=== PATIENT | female | born 1940 | race African-American/Black ===

== ENCOUNTER 2021-07-24 08:33 | Inpatient (IN) | payer MEDICARE, MEDICAID ==
[~2021-07-24] VITALS: Ht 157.5 cm; Wt 65.3 kg
[2021-07-24 09:17] LABS: BASOPHILS % 0.5 % (0.0-2.0); EOSINOPHILS % 5.6 % (0.0-5.0); HEMATOCRIT. 35.9 % (36.0-48.0); HEMOGLOBIN. 11.5 g/dL (12.0-16.0); LYMPHOCYTES % 20.9 % (20.0-50.0); MEAN CORPUSCULAR HEMOGLOBIN 24.2 pg (28.0-32.0); MEAN CORPUSCULAR VOLUME 75.7 fL (81.0-99.0); MEAN PLATELET VOLUME 8.9 fl (7.4-10.4); MONOCYTES % 4.9 % (2.0-8.0); NEUTROPHILS % 68.1 % (40.0-76.0); PLATELET 178 x1000/uL (130-400); RED BLOOD CELL COUNT 4.74 mill/uL (4.2-5.4)
[2021-07-24 09:20] LABS: CHLORIDE 103 mEq/L (98-107)
[2021-07-24 09:24] LABS: ETHANOL BLOOD < 10 mg/dL
[2021-07-24 09:27] LABS: LDL CHOLESTEROL 57 mg/dL (5-100)
[2021-07-24] MEDS ORDERED: IOHEXOL-350 100 ML BOTTLE ONE (09:48)
[2021-07-24] MEDS ORDERED: ASPIRIN 81MG TABLET PO ONE (10:15)
[2021-07-24] MEDS ORDERED: NITROGLYCERIN OINT 1GM/INCH UDPKT TD ONE (10:15)
[2021-07-24] MEDS ORDERED: HYDRALAZINE 20MG/ML VIAL IV ONE (10:15)
[2021-07-24] MEDS ORDERED: FUROSEMIDE 40MG/4ML VIAL IV ONE (10:15)
[2021-07-24 10:49] LABS: CLARITY URINE CLOUDY (CLEAR); COLOR URINE RED (YELLOW); KETONES URINE NEGATIVE (NEGATIVE); LEUKOCYTE ESTERASE URINE 3+ (NEGATIVE); NITRITE URINE NEGATIVE (NEGATIVE); OCCULT BLOOD URINE 3+ (NEGATIVE); PROTEIN URINE 1+ (NEGATIVE); SPECIFIC GRAVITY URINE 1.011 (1.005-1.030)
[2021-07-24 10:50] LABS: INR 1.3; PARTIAL THROMBOPLASTIN TIME 32.2 sec (23.4-31.0); PROTHROMBIN TIME 13.5 sec (9.6-11.0)
[2021-07-24] MEDS ORDERED: LEVOFLOXACIN 500MG PREMIX 100 ML IV ONE (11:00)
[2021-07-24 11:10] LABS: *AMPHETAMINES SCREEN URINE NEGATIVE (NEGATIVE); *BARBITURATES SCREEN URINE NEGATIVE (NEGATIVE); *BENZODIAZEPINES SCREEN URINE NEGATIVE (NEGATIVE); *COCAINE SCREEN URINE NEGATIVE (NEGATIVE)
[2021-07-24 11:11] LABS: CANNABINOID URINE SCREEN NEGATIVE (NEGATIVE); METHADONE URINE SCREEN NEGATIVE (NEGATIVE); OPIATES URINE SCREEN NEGATIVE (NEGATIVE); PHENCYCLIDINE URINE SCREEN NEGATIVE (NEGATIVE)
[2021-07-24] MEDS ORDERED: ONDANSETRON HCL 4MG/2ML INJ IV PRN (14:45)
[2021-07-24] MEDS ORDERED: ACETAMINOPHEN 325MG TABLET PO PRN (14:45)
[2021-07-24] MEDS ORDERED: DOCUSATE SODIUM 100MG CAPSULE PO PRN (14:45)
[2021-07-24] MEDS: CLOPIDOGREL 75MG TABLET PO SCH (14:45)
[2021-07-24] MEDS ORDERED: IPRATROPIUM/ALBUTEROL 0.5-3(2.5)MG/3ML NEB HHN PRN (14:45)
[2021-07-24] MEDS ORDERED: ESMOLOL 2500MG PREMIX 250 ML IV PRN ×2 (15:00→15:45)
[2021-07-24] MEDS: ENOXAPARIN 60MG/0.6ML SYR SUBCUT SCH (16:26)
[2021-07-24 16:35] LABS: TOTAL IRON BINDING CAPACITY 431 ug/dL (250-450)
[2021-07-24 16:54] LABS: FOLIC ACID (FOLATE) SERUM >20 ng/mL ng/mL (>5.38)
[2021-07-24 17:04] LABS: FERRITIN 41 ng/mL (10-291)
[2021-07-24 17:05] LABS: VITAMIN B12 SERUM 660 pg/mL (211-911)
[2021-07-25] VITALS (51 sets, daily range): BP systolic 79–195; BP diastolic 28–122
[2021-07-25 09:03] LABS: BASOPHILS % 0.4 % (0.0-2.0); EOSINOPHILS % 0.6 % (0.0-5.0); HEMATOCRIT. 37.1 % (36.0-48.0); HEMOGLOBIN. 11.9 g/dL (12.0-16.0); LYMPHOCYTES % 12.7 % (20.0-50.0); MEAN CORPUSCULAR HEMOGLOBIN 24.2 pg (28.0-32.0); MEAN CORPUSCULAR VOLUME 75.7 fL (81.0-99.0); MEAN PLATELET VOLUME 8.8 fl (7.4-10.4); MONOCYTES % 7.8 % (2.0-8.0); NEUTROPHILS % 78.5 % (40.0-76.0); PLATELET 156 x1000/uL (130-400); RED BLOOD CELL COUNT 4.91 mill/uL (4.2-5.4)
[2021-07-25 09:08] LABS: CHLORIDE 98 mEq/L (98-107)
[2021-07-25] MEDS ORDERED: LEVOFLOXACIN 500MG PREMIX 100 ML IV SCH (12:00)
[2021-07-25] MEDS: ESMOLOL 2500MG PREMIX 250 ML IV PRN ×3 (12:52→21:49)
[2021-07-25] MEDS ORDERED: POTASSIUM CHLORIDE 20MEQ TABLET SR PO NR (13:45)
[2021-07-25] MEDS: LEVOFLOXACIN 250MG PREMIX 50 ML IV SCH (14:44)
[2021-07-25] MEDS: ASPIRIN 81MG TABLET PO SCH (14:44)
[2021-07-25] MEDS: DEXT 5%/0.9% NACL 1,000 ML IV SCH (14:44)
[2021-07-25] MEDS: CLOPIDOGREL 75MG TABLET PO SCH (14:45)
[2021-07-25] MEDS: IRON SUCROSE COMPLEX 100 MG/5 ML ML IV SCH (18:33)
[2021-07-25] MEDS: ENOXAPARIN 60MG/0.6ML SYR SUBCUT SCH (18:33)
[2021-07-26] VITALS (90 sets, daily range): BP systolic 106–169; BP diastolic 54–135
[2021-07-26] MEDS: DEXT 5%/0.9% NACL 1,000 ML IV SCH ×2 (01:50→09:13)
[2021-07-26] MEDS: ESMOLOL 2500MG PREMIX 250 ML IV PRN ×6 (01:50→23:59)
[2021-07-26 05:27] LABS: HEMATOCRIT. 32.8 % (36.0-48.0); HEMOGLOBIN. 10.6 g/dL (12.0-16.0); MEAN CORPUSCULAR HEMOGLOBIN 24.4 pg (28.0-32.0); MEAN CORPUSCULAR VOLUME 75.2 fL (81.0-99.0); MEAN PLATELET VOLUME 8.8 fl (7.4-10.4); PLATELET 139 x1000/uL (130-400); RED BLOOD CELL COUNT 4.36 mill/uL (4.2-5.4); RED CELL DISTRIBUTION WIDTH 20.9 % (11.6-14.6)
[2021-07-26 05:34] LABS: CHLORIDE 99 mEq/L (98-107)
[2021-07-26] MEDS ORDERED: POTASSIUM CHLORIDE 20MEQ/PACKET PO NR (07:30)
[2021-07-26] MEDS: CLOPIDOGREL 75MG TABLET PO SCH (08:59)
[2021-07-26] MEDS: MAGNESIUM OXIDE 400MG TABLET PO SCH (08:59)
[2021-07-26] MEDS: ASPIRIN 81MG TABLET PO SCH (08:59)
[2021-07-26 10:23] LABS: PLATELET ESTIMATE NORMAL
[2021-07-26] MEDS: LEVOFLOXACIN 250MG PREMIX 50 ML IV SCH (12:18)
[2021-07-26 13:05] LABS: CREATINE KINASE 267 IU/L (26-192)
[2021-07-26] MEDS: METOPROLOL TARTRATE 25MG TABLET PO SCH ×2 (13:50→22:03)
[2021-07-26 13:57] LABS: CLARITY URINE CLOUDY (CLEAR); COLOR URINE DARK YELLOW (YELLOW); KETONES URINE TRACE (NEGATIVE); LEUKOCYTE ESTERASE URINE 3+ (NEGATIVE); NITRITE URINE NEGATIVE (NEGATIVE); OCCULT BLOOD URINE 3+ (NEGATIVE); PH URINE 6.5 (4.5-8.0); PROTEIN URINE 2+ (NEGATIVE); SPECIFIC GRAVITY URINE 1.023 (1.005-1.030)
[2021-07-26] MEDS: ENOXAPARIN 60MG/0.6ML SYR SUBCUT SCH (16:45)
[2021-07-26] MEDS: IRON SUCROSE COMPLEX 100 MG/5 ML ML IV SCH (16:45)
[2021-07-26] MEDS ORDERED: DEXTROSE 50% WATER 50ML SYRINGE IV PRN (21:30)
[2021-07-27] VITALS (87 sets, daily range): BP systolic 122–186; BP diastolic 52–101
[2021-07-27] MEDS: DEXT 5%/0.9% NACL 1,000 ML IV SCH ×2 (02:44→13:00)
[2021-07-27 06:11] LABS: HEMATOCRIT. 32.3 % (36.0-48.0); HEMOGLOBIN. 10.5 g/dL (12.0-16.0); MEAN CORPUSCULAR HEMOGLOBIN 24.2 pg (28.0-32.0); MEAN CORPUSCULAR VOLUME 74.5 fL (81.0-99.0); MEAN PLATELET VOLUME 9.1 fl (7.4-10.4); PLATELET 141 x1000/uL (130-400); RED BLOOD CELL COUNT 4.34 mill/uL (4.2-5.4); RED CELL DISTRIBUTION WIDTH 20.8 % (11.6-14.6)
[2021-07-27] MEDS: METOPROLOL TARTRATE 25MG TABLET PO SCH ×2 (06:17→17:10)
[2021-07-27 06:24] LABS: CHLORIDE 103 mEq/L (98-107)
[2021-07-27] MEDS: ESMOLOL 2500MG PREMIX 250 ML IV PRN (06:42)
[2021-07-27] MEDS: BLOOD SUGAR DIAGNOSTIC STRIP TEST SCH ×4 (07:54→18:04)
[2021-07-27] MEDS: INSULIN LISPRO 100 UNITS/ML SUBCUT SCH ×4 (07:54→21:00)
[2021-07-27] MEDS: ASPIRIN 81MG TABLET PO SCH (09:38)
[2021-07-27] MEDS: MAGNESIUM OXIDE 400MG TABLET PO SCH (09:38)
[2021-07-27] MEDS: CLOPIDOGREL 75MG TABLET PO SCH (09:38)
[2021-07-27] MEDS: LEVOFLOXACIN 250MG PREMIX 50 ML IV SCH (12:58)
[2021-07-27] MEDS: ESMOLOL 2500MG PREMIX 250 ML IV SCH ×3 (13:48→23:09)
[2021-07-27] MEDS: ENOXAPARIN 60MG/0.6ML SYR SUBCUT SCH (16:03)
[2021-07-27] MEDS: IRON SUCROSE COMPLEX 100 MG/5 ML ML IV SCH (16:03)
[2021-07-27] MEDS: AMLODIPINE 5MG TABLET PO SCH (16:04)
[2021-07-27 16:13] LABS: PLATELET ESTIMATE NORMAL
[2021-07-27] MEDS: NITROGLYCERIN OINT 1GM/INCH UDPKT TD SCH (17:09)
[2021-07-27] MEDS ORDERED: ENALAPRIL 1.25MG/ML VIAL 1ML IV NR (17:33)
[2021-07-27] MEDS ORDERED: ENALAPRIL 1.25MG/ML VIAL 1ML IV PRN (17:38)
[2021-07-28] VITALS (92 sets, daily range): BP systolic 127–181; BP diastolic 58–97
[2021-07-28] MEDS: NITROGLYCERIN OINT 1GM/INCH UDPKT TD SCH ×5 (00:07→23:22)
[2021-07-28] MEDS: DEXT 5%/0.9% NACL 1,000 ML IV SCH ×3 (00:07→21:17)
[2021-07-28] MEDS: METOPROLOL TARTRATE 25MG TABLET PO SCH ×3 (05:10→20:15)
[2021-07-28 05:53] LABS: CHLORIDE 104 mEq/L (98-107)
[2021-07-28 05:59] LABS: BASOPHILS % 0.1 % (0.0-2.0); EOSINOPHILS % 0.4 % (0.0-5.0); HEMATOCRIT. 31.2 % (36.0-48.0); HEMOGLOBIN. 10.3 g/dL (12.0-16.0); LYMPHOCYTES % 12.1 % (20.0-50.0); MEAN CORPUSCULAR HEMOGLOBIN 24.8 pg (28.0-32.0); MEAN CORPUSCULAR VOLUME 75.3 fL (81.0-99.0); MEAN PLATELET VOLUME 9.1 fl (7.4-10.4); NEUTROPHILS % 76.4 % (40.0-76.0); PLATELET 162 x1000/uL (130-400); RED BLOOD CELL COUNT 4.14 mill/uL (4.2-5.4)
[2021-07-28] MEDS: BLOOD SUGAR DIAGNOSTIC STRIP TEST SCH (07:50)
[2021-07-28] MEDS: INSULIN LISPRO 100 UNITS/ML SUBCUT SCH (08:20)
[2021-07-28] MEDS: MAGNESIUM OXIDE 400MG TABLET PO SCH (09:20)
[2021-07-28] MEDS: ASPIRIN 81MG TABLET PO SCH (09:20)
[2021-07-28] MEDS: AMLODIPINE 5MG TABLET PO SCH (09:20)
[2021-07-28] MEDS: ESMOLOL 2500MG PREMIX 250 ML IV SCH (11:25)
[2021-07-28] MEDS: LEVOFLOXACIN 250MG PREMIX 50 ML IV SCH (12:13)
[2021-07-28] MEDS ORDERED: LISINOPRIL 5MG TABLET PO NR (13:00)
[2021-07-28] MEDS: ENOXAPARIN 60MG/0.6ML SYR SUBCUT SCH (16:46)
[2021-07-29] VITALS (55 sets, daily range): BP systolic 110–204; BP diastolic 57–135
[2021-07-29] MEDS: DEXT 5%/0.9% NACL 1,000 ML IV SCH (02:50)
[2021-07-29] MEDS: NITROGLYCERIN OINT 1GM/INCH UDPKT TD SCH ×3 (05:34→21:50)
[2021-07-29 06:05] LABS: BASOPHILS % 0.3 % (0.0-2.0); EOSINOPHILS % 1.6 % (0.0-5.0); HEMATOCRIT. 34.1 % (36.0-48.0); LYMPHOCYTES % 15.4 % (20.0-50.0); MEAN CORPUSCULAR HEMOGLOBIN 24.5 pg (28.0-32.0); MEAN CORPUSCULAR VOLUME 76.1 fL (81.0-99.0); MEAN PLATELET VOLUME 9.1 fl (7.4-10.4); MONOCYTES % 10.8 % (2.0-8.0); NEUTROPHILS % 71.9 % (40.0-76.0); PLATELET 195 x1000/uL (130-400); RED BLOOD CELL COUNT 4.47 mill/uL (4.2-5.4); RED CELL DISTRIBUTION WIDTH 21.3 % (11.6-14.6)
[2021-07-29 06:07] LABS: CHLORIDE 105 mEq/L (98-107)
[2021-07-29 06:22] LABS: PHOSPHORUS 1.6 mg/dL (2.5-4.9)
[2021-07-29] MEDS ORDERED: HYDRALAZINE 20MG/ML VIAL IV ONE ×2 (06:45→07:00)
[2021-07-29] MEDS ORDERED: HYDRALAZINE 20MG/ML VIAL IV SCH ×2 (06:45→07:15)
[2021-07-29] MEDS: ACETAMINOPHEN 325MG TABLET PO PRN ×2 (06:54→19:59)
[2021-07-29] MEDS: ASPIRIN 81MG TABLET PO SCH (07:42)
[2021-07-29] MEDS: MAGNESIUM OXIDE 400MG TABLET PO SCH (07:42)
[2021-07-29] MEDS: AMLODIPINE 5MG TABLET PO SCH (07:43)
[2021-07-29] MEDS: METOPROLOL TARTRATE 25MG TABLET PO SCH ×2 (07:43→21:50)
[2021-07-29] MEDS ORDERED: LISINOPRIL 5MG TABLET PO SCH ×2 (09:00)
[2021-07-29] MEDS ORDERED: POTASSIUM PHOS,M-BASIC-D-BASIC 20 MMOL in DEXT 5% WATER 243.3333 ML IV NR (12:00)
[2021-07-29] MEDS: ENOXAPARIN 60MG/0.6ML SYR SUBCUT SCH (16:47)
[2021-07-30] VITALS (12 sets, daily range): BP systolic 116–159; BP diastolic 60–78
[2021-07-30] MEDS: NITROGLYCERIN OINT 1GM/INCH UDPKT TD SCH ×2 (06:37→21:11)
[2021-07-30] MEDS: DEXT 5%/0.9% NACL 1,000 ML IV SCH (06:42)
[2021-07-30 07:08] LABS: *CREATININE RANDOM URINE 124.9 mg/dL (Not Estab.); MICROALBUMIN RANDOM URINE 408.1 ug/mL (Not Estab.)
[2021-07-30 07:51] LABS: BASOPHILS % 0.2 % (0.0-2.0); EOSINOPHILS % 4.3 % (0.0-5.0); HEMATOCRIT. 30.9 % (36.0-48.0); LYMPHOCYTES % 15.5 % (20.0-50.0); MEAN CORPUSCULAR HEMOGLOBIN 25.1 pg (28.0-32.0); MEAN CORPUSCULAR VOLUME 77.1 fL (81.0-99.0); MEAN PLATELET VOLUME 8.5 fl (7.4-10.4); MONOCYTES % 12.3 % (2.0-8.0); NEUTROPHILS % 67.7 % (40.0-76.0); PLATELET 196 x1000/uL (130-400); RED BLOOD CELL COUNT 4.01 mill/uL (4.2-5.4); RED CELL DISTRIBUTION WIDTH 21.6 % (11.6-14.6)
[2021-07-30 08:13] LABS: CHLORIDE 107 mEq/L (98-107)
[2021-07-30 08:28] LABS: PHOSPHORUS 2.1 mg/dL (2.5-4.9)
[2021-07-30] MEDS: METOPROLOL TARTRATE 25MG TABLET PO SCH ×2 (08:51→21:10)
[2021-07-30] MEDS: AMLODIPINE 5MG TABLET PO SCH (08:51)
[2021-07-30] MEDS: ASPIRIN 81MG TABLET PO SCH (08:51)
[2021-07-30] MEDS: MAGNESIUM OXIDE 400MG TABLET PO SCH (08:52)
[2021-07-30] MEDS: LISINOPRIL 20MG TABLET PO SCH (08:52)
[2021-07-30] MEDS: APIXABAN 2.5 MG TABLET PO SCH ×2 (12:31→21:10)
[2021-07-30] MEDS: ACETAMINOPHEN 325MG TABLET PO PRN (17:58)
[2021-07-31] VITALS (11 sets, daily range): BP systolic 94–188; BP diastolic 57–112
[2021-07-31 06:15] LABS: CHLORIDE 106 mEq/L (98-107)
[2021-07-31 06:39] LABS: BASOPHILS % 0.4 % (0.0-2.0); EOSINOPHILS % 7.3 % (0.0-5.0); HEMATOCRIT. 33.5 % (36.0-48.0); HEMOGLOBIN. 10.6 g/dL (12.0-16.0); LYMPHOCYTES % 14.9 % (20.0-50.0); MEAN CORPUSCULAR HEMOGLOBIN 24.8 pg (28.0-32.0); MEAN CORPUSCULAR VOLUME 78.1 fL (81.0-99.0); MEAN PLATELET VOLUME 8.5 fl (7.4-10.4); MONOCYTES % 11.9 % (2.0-8.0); NEUTROPHILS % 65.5 % (40.0-76.0); PLATELET 217 x1000/uL (130-400); RED BLOOD CELL COUNT 4.29 mill/uL (4.2-5.4); RED CELL DISTRIBUTION WIDTH 21.7 % (11.6-14.6)
[2021-07-31] MEDS: MAGNESIUM OXIDE 400MG TABLET PO SCH (08:44)
[2021-07-31] MEDS: LISINOPRIL 20MG TABLET PO SCH (08:44)
[2021-07-31] MEDS: METOPROLOL TARTRATE 25MG TABLET PO SCH ×2 (08:44→22:51)
[2021-07-31] MEDS: AMLODIPINE 5MG TABLET PO SCH (08:45)
[2021-07-31] MEDS: NITROGLYCERIN OINT 1GM/INCH UDPKT TD SCH ×2 (08:45→22:50)
[2021-07-31] MEDS: ASPIRIN 81MG TABLET PO SCH (08:45)
[2021-07-31] MEDS: APIXABAN 2.5 MG TABLET PO SCH ×2 (08:45→22:50)
[2021-07-31] MEDS: DEXT 5%/0.9% NACL 1,000 ML IV SCH (08:47)
[2021-07-31] MEDS ORDERED: BISACODYL 10MG SUPP PR PRN (11:15)
[2021-07-31] MEDS: POLYETHYLENE GLYCOL 3350 (17GM) 1 DOSE PACK PO SCH (13:06)
[2021-08-01] VITALS (12 sets, daily range): BP systolic 132–160; BP diastolic 67–99
[2021-08-01] MEDS: ACETAMINOPHEN 325MG TABLET PO PRN ×2 (04:15→12:04)
[2021-08-01] MEDS: AMLODIPINE 5MG TABLET PO SCH (08:46)
[2021-08-01] MEDS: LISINOPRIL 20MG TABLET PO SCH (08:46)
[2021-08-01] MEDS: POLYETHYLENE GLYCOL 3350 (17GM) 1 DOSE PACK PO SCH (08:46)
[2021-08-01] MEDS: NITROGLYCERIN OINT 1GM/INCH UDPKT TD SCH (08:46)
[2021-08-01] MEDS: MAGNESIUM OXIDE 400MG TABLET PO SCH (08:46)
[2021-08-01] MEDS: ASPIRIN 81MG TABLET PO SCH (08:46)
[2021-08-01] MEDS: METOPROLOL TARTRATE 25MG TABLET PO SCH (08:47)
[2021-08-01] MEDS: APIXABAN 2.5 MG TABLET PO SCH (08:47)
[2021-08-01] MEDS ORDERED: ASPI-1160 PO (14:25)
[2021-08-01] MEDS ORDERED: APIX2.5T PO (14:25)
[2021-08-01] MEDS ORDERED: METO25TA6 PO (14:25)
[2021-08-01] MEDS ORDERED: LISI20TA31 PO (14:25)
[2021-08-01] MEDS ORDERED: AMLO5TAB88 PO (14:25)
[2021-08-01] MEDS ORDERED: NITR1OIN TD (14:25)
== END 2021-08-01 20:20 | DRG 64 ==
LOC: ER 08:39 → MICUSO 10:23 → EDBEDREQSVC 15:06 → CVICU 07-25 11:16 → 5EST 07-29 12:34
PROVIDERS: ADMIT Internal Medicine; ATTEND Internal Medicine
PROC: 4A10X4Z Monitoring of Central Nervous Electrical Activity, External Approach (ICD-10-PCS; principal; 2021-07-27)
DX: I63.512 Cerebral infarction due to unspecified occlusion or stenosis of left middle cerebral artery (principal); I50.31 Acute diastolic (congestive) heart failure; N39.0 Urinary tract infection, site not specified; G81.91 Hemiplegia, unspecified affecting right dominant side; I16.1 Hypertensive emergency; E87.1 Hypo-osmolality and hyponatremia; I48.19 Other persistent atrial fibrillation; J90 Pleural effusion, not elsewhere classified; J81.1 Chronic pulmonary edema; J45.909 Unspecified asthma, uncomplicated; M48.02 Spinal stenosis, cervical region; R29.712 NIHSS score 12; R29.810 Facial weakness; R47.01 Aphasia; D50.9 Iron deficiency anemia, unspecified; D72.10 Eosinophilia, unspecified; E11.9 Type 2 diabetes mellitus without complications; E78.00 Pure hypercholesterolemia, unspecified; E78.5 Hyperlipidemia, unspecified; E83.42 Hypomagnesemia; I25.10 Atherosclerotic heart disease of native coronary artery without angina pectoris; Z20.822 Contact with and (suspected) exposure to COVID-19; M19.90 Unspecified osteoarthritis, unspecified site; R34 Anuria and oliguria; R31.9 Hematuria, unspecified; R74.8 Abnormal levels of other serum enzymes; R79.89 Other specified abnormal findings of blood chemistry; I27.20 Pulmonary hypertension, unspecified; I11.0 Hypertensive heart disease with heart failure; Z79.01 Long term (current) use of anticoagulants; Z79.84 Long term (current) use of oral hypoglycemic drugs; Z79.899 Other long term (current) drug therapy; Z86.73 Personal history of transient ischemic attack (TIA), and cerebral infarction without residual deficits; Z88.0 Allergy status to penicillin; Z88.8 Allergy status to other drugs, medicaments and biological substances; I25.2 Old myocardial infarction; R77.8 Other specified abnormalities of plasma proteins
CPT/HCPCS: 36415; 70496; 70498; 70551; 71045; 76770; 80048; 80053; 80061; 80305; 80320; 81003; 82043; 82550; 82570; 82607; 82728; 82746; 82962; 83036; 83540; 83550; 83721; 83735; 83880; 83935; 84100; 84300; 84443; 84484; 85025; 86850; 86900; 87426; 92610; 93005; 93306; 93970; 95816; 97112; 97162; 97166; 99291; J0360; J1650; J1940; J1956; J3490; J7042; J7060; Q9967; A4315; G0480